=== PATIENT | male | born 1985 | race Two or more races ===

== ENCOUNTER 2022-05-21 22:35 | Emergency (ER) | payer OTHER ==
[~2022-05-21] VITALS: Ht 170.2 cm; Wt 79.5 kg
[2022-05-21 23:10] LABS: COVID AG,FIA SOURCE NASAL SWAB
[2022-05-21 23:29] LABS: INFLUENZA TYPE A NEGATIVE FOR TYPE A (NEGATIVE); INFLUENZA TYPE B NEGATIVE FOR TYPE B (NEGATIVE)
[2022-05-22 00:39] VITALS: BP 135/75
[2022-05-22] MEDS ORDERED: BENZ-70 PO (01:10)
[2022-05-22] MEDS ORDERED: IBUP-2070 PO (01:10)
== END 2022-05-22 01:21 | disposition home or self-care (01) ==
LOC: EMS 22:37
DX: J06.9 Acute upper respiratory infection, unspecified (principal); F17.210 Nicotine dependence, cigarettes, uncomplicated; F12.90 Cannabis use, unspecified, uncomplicated; Z98.890 Other specified postprocedural states; Z20.822 Contact with and (suspected) exposure to COVID-19
CPT/HCPCS: 71045; 87804; 99284